=== PATIENT | female | born 1935 | race Caucasian/White ===

== ENCOUNTER 2021-12-02 14:49 | Observation (INO) | payer MEDICARE ==
[2021-12-02 17:44] LABS: Basophils % (A) 0 %; Eosinophils # (A) 0.1 k/uL (0-0.7); Eosinophils % (A) 1 %; HCT 40.8 % (34.0-46.0); HGB 13.6 gm/dL (11.4-16.0); Lymphocytes # (A) 1.5 k/uL (1.0-4.8); Lymphocytes % (A) 18 %; MCH 31.1 pg (25.0-35.0); MCHC 33.4 g/dL (31.0-37.0); MCV 93.3 fL (80.0-100.0); Monocytes # (A) 0.3 k/uL (0-1.0); Monocytes % (A) 3 %; Neutrophils # (A) 6.3 k/uL (1.3-7.7); Neutrophils % (A) 75 %; Platelet Count 247 k/uL (150-450); RBC 4.38 m/uL (3.80-5.40); RDW 14.6 % (11.5-15.5); WBC 8.3 k/uL (3.8-10.6)
[2021-12-02 17:51] LABS: Albumin 3.5 g/dL (3.5-5.0); Calcium 9.1 mg/dL (8.4-10.2); Potassium 2.9 mmol/L (3.5-5.1); Total Bilirubin 0.8 mg/dL (0.2-1.3); Total Protein 6.6 g/dL (6.3-8.2)
[2021-12-02] MEDS ORDERED: VANCOMYCIN IV PER PHARMACY 1 EACH MISC MISCELLANE PRN (19:16)
--- NOTE | 2021-12-02 19:22 | ED ---
Extremity Problem HPI - General Chief complaint: Extremity Problem,Nontraumatic Stated complaint: Leg pain Time Seen by Provider: 12/02/21 19:09 Source: patient, EMS, RN notes reviewed Mode of arrival: EMS Limitations: no limitations - History of Present Illness Initial comments: This is a pleasant 86-year-old female who presents to emergency department complaining of bilateral lower leg cellulitis which is not improving. Patient states she's been antibiotics which she just finished. Patient states the left leg is worse than the right. She states she has had problems with recurrent skin redness and cellulitis going on for quite some time, Patient also has developed large ulcerations over quite some time. Patient telling me she's been treated multiple times for this. Patient does have a history of diabetes. No insulin. .Patient does not recall what antibiotic she spine. She states she took the entire course of antibiotics. Has been no improvement, in fact cellulitis is getting worse. Patient unsure whether she's had a history of MRSA or not. No headache, no fever or chills, no changes in vision or hearing, no sore throat or difficulty with speech, no neck pain, no chest pain or shortness of breath, no abdominal pain, no nausea or vomiting, no changes in urination or bowel movements, no numbness or tingling, no skin rashes or lesions. - Related Data Allergies Allergy/AdvReac Type Severity Reaction Status Date / Time No Known Allergies Allergy Verified 12/02/21 16:02 Review of Systems ROS Statement: Those systems with pertinent positive or pertinent negative responses have been documented in the HPI. ROS Other: All systems not noted in ROS Statement are negative. Past Medical History Past Medical History: Diabetes Mellitus History of Any Multi-Drug Resistant Organisms: None Reported Past Surgical History: No Surgical Hx Reported Past Psychological History: No Psychological Hx Reported Smoking Status: Never smoker Past Alcohol Use History: None Reported Past Drug Use History: None Reported General Exam - General Exam Comments Initial Comments: Deconditioned appearing 86-year-old female in no acute distress. Patient does not appear to be ill or toxic. Patient has obvious cellulitis to the left lower leg. To a lesser extent has some erythema to the right lower leg as well. This seems to spare the foot. Distal sensation intact. Pulses are intact. Limitations: no limitations General appearance: alert, in no apparent distress Head exam: Present: atraumatic, normocephalic, normal inspection Eye exam: Present: normal appearance, PERRL, EOMI. Absent: scleral icterus, conjunctival injection, periorbital swelling ENT exam: Present: normal exam, mucous membranes moist Neck exam: Present: normal inspection, full ROM. Absent: tenderness, mening ismus, lymphadenopathy Respiratory exam: Present: normal lung sounds bilaterally, other (No respiratory distress, no adventitious lung sounds). Absent: respiratory distress, wheezes, rales, rhonchi, stridor, chest wall tenderness, accessory muscle use, decreased breath sounds, prolonged expiratory Cardiovascular Exam: Present: regular rate, normal rhythm, normal heart sounds. Absent: systolic murmur, diastolic murmur, rubs, gallop, clicks GI/Abdominal exam: Present: soft, normal bowel sounds. Absent: distended, tende rness, guarding, rebound, rigid Extremities exam: Present: full ROM, normal capillary refill, pedal edema (Edema to both lower extremities. Patient does have erythema which is greater on the left lower extremities. Patient does have break in skin integrity with what appears to be serous fluid.), other (Large ulcerations measuring 3-4 cm in diameter, left side does show some evidence of mucopurulent drainage.). Absent: normal inspection, tenderness, joint swelling, calf tenderness Back exam: Present: normal inspection Neurological exam: Present: alert, oriented X3, CN II-XII intact Psychiatric exam: Present: normal affect, normal mood Skin exam: Present: warm, dry, intact, normal color. Absent: rash Course Vital Signs 12/02/21 15:58 Temperature 98.6 F Pulse Rate 77 Respiratory 18 Rate Blood Pressure 125/69 O2 Sat by Pulse 96 Oximetry Medical Decision Making - Medical Decision Making She presents with bilateral lower extremities cellulitis, outpatient treatment failure after an entire round of antibiotics. White blood cell count in triage was normal. The patient's vital signs are stable, patient afebrile. Patient will require intravenous antibiotics and admission. - Lab Data Result diagrams: 12/02/21 17:26 12/02/21 17:26 Lab Results 12/02/21 12/02/21 Range/Units 17:26 17:26 WBC 8.3 (3.8-10.6) k/uL RBC 4.38 (3.80-5.40) m/uL Hgb 13.6 (11.4-16.0) gm/dL Hct 40.8 (34.0-46.0) % MCV 93.3 (80.0-100.0) fL MCH 31.1 (25.0-35.0) pg MCHC 33.4 (31.0-37.0) g/dL RDW 14.6 (11.5-15.5) % Plt Count 247 (150-450) k/uL MPV 8.0 Neutrophils % 75 % Lymphocytes % 18 % Monocytes % 3 % Eosinophils % 1 % Basophils % 0 % Neutrophils # 6.3 (1.3-7.7) k/uL Lymphocytes # 1.5 (1.0-4.8) k/uL Monocytes # 0.3 (0-1.0) k/uL Eosinophils # 0.1 (0-0.7) k/uL Basophils # 0.0 (0-0.2) k/uL Sodium 139 (137-145) mmol/L Potassium 2.9 L (3.5-5.1) mmol/L Chloride 103 (98-107) mmol/L Carbon Dioxide 29 (22-30) mmol/L Anion Gap 7 mmol/L BUN 27 H (7-17) mg/dL Creatinine 0.72 (0.52-1.04) mg/dL Est GFR (CKD-EPI)AfAm 89 (>60 ml/min/1.73 sqM) Est GFR (CKD-EPI)NonAf 77 (>60 ml/min/1.73 sqM) Glucose 126 H (74-99) mg/dL Calcium 9.1 (8.4-10.2) mg/dL Total Bilirubin 0.8 (0.2-1.3) mg/dL AST 18 (14-36) U/L ALT 15 (4-34) U/L Alkaline Phosphatase 140 H (38-126) U/L Total Protein 6.6 (6.3-8.2) g/dL Albumin 3.5 (3.5-5.0) g/dL Disposition Clinical Impression: Bilateral cellulitis of lower leg, Cellulitis, Bilateral leg ulcer, Hypokalemia Disposition: ADMITTED IP TO THIS [facility] Condition: Fair Referrals: Nonstaff,Physician [REFERRING] - 1-2 days Decision to Admit Reason: Admit from EC Decision Time: 20:26
[2021-12-02] MEDS ORDERED: VANCOMYCIN 1,250 MG in SODIUM CHLORIDE 0.9% 250 ML IVPB ONE (20:00)
[2021-12-02] MEDS ORDERED: NALOXONE 0.4 MG/ML 1 ML VIAL IV PRN (21:04)
[2021-12-02] MEDS ORDERED: Potassium Replacement Protocol 1 EACH MISC MISCELLANE PRN (21:08)
[2021-12-02] MEDS ORDERED: ONDANSETRON 4 MG/2 ML VIAL IVP STA (22:10)
[2021-12-02] MEDS ORDERED: MORPHINE SULFATE 4 MG/ML SYRINGE IV STA (22:10)
[2021-12-02] MEDS ORDERED: ONDANSETRON 4 MG/2 ML VIAL IVP PRN (22:11)
[2021-12-02] MEDS: HEPARIN SODIUM,PORCINE/PF 5,000 UNIT/0.5 ML SYRINGE SQ SCH (22:29)
[2021-12-02] MEDS: POTASSIUM CHLORIDE ER 20 MEQ TAB.ER PO SCH ×2 (22:30→23:17)
--- NOTE | 2021-12-02 22:30 | XR ---
EXAMINATION TYPE: XR tibia fibula bilateral DATE OF EXAM: 12/02/2021 9:15 PM INDICATION: Patient age:Female; 86 years old; Reason for study: Cellulitis; COMPARISON: None TECHNIQUE: The bilateral tibia/fibula was examined in AP and lateral projections. FINDINGS: No evidence of any acute osseous pathology or joint dislocation. There is soft tissue swell ing throughout the lower extremities. There is severe atherosclerosis of the arterial vasculature. So ft tissue wound is seen on the lateral aspect of the bilateral lower legs. There is moderate joint sp jeni narrowing of the knees with sclerosis and osteophyte formation. No evidence osseous erosion to navarro ggest osteitis. No radiopaque foreign bodies. IMPRESSION: 1. No evidence of acute fracture. 2. Soft tissue swelling throughout the extremities with bilateral wound on the lateral legs. 3. 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
[2021-12-02] MEDS: SODIUM CHLORIDE 0.9% 1,000 ML IV SCH (22:36)
[2021-12-03 00:06] LABS: Glucose,Whole Blood 202 mg/dL (75-99)
[2021-12-03] MEDS: POTASSIUM CHLORIDE ER 20 MEQ TAB.ER PO SCH (00:38)
[2021-12-03] MEDS: ACETAMINOPHEN TAB 325 MG TAB PO PRN (02:29)
[2021-12-03 04:14] LABS: Basophils # (A) 0.1 k/uL (0-0.2); Basophils % (A) 1 %; Eosinophils # (A) 0.1 k/uL (0-0.7); Eosinophils % (A) 2 %; HCT 38.2 % (34.0-46.0); HGB 12.1 gm/dL (11.4-16.0); Lymphocytes # (A) 1.5 k/uL (1.0-4.8); Lymphocytes % (A) 18 %; MCH 30.2 pg (25.0-35.0); MCHC 31.6 g/dL (31.0-37.0); MCV 95.5 fL (80.0-100.0); Mean Platelet Volume 8.5; Monocytes # (A) 0.5 k/uL (0-1.0); Monocytes % (A) 5 %; Neutrophils # (A) 6.3 k/uL (1.3-7.7); Neutrophils % (A) 73 %; Platelet Count 224 k/uL (150-450); WBC 8.6 k/uL (3.8-10.6)
[2021-12-03 04:37] LABS: Calcium 8.5 mg/dL (8.4-10.2); Magnesium 1.6 mg/dL (1.6-2.3); Potassium 3.8 mmol/L (3.5-5.1); Total Bilirubin 0.7 mg/dL (0.2-1.3); Total Protein 5.8 g/dL (6.3-8.2)
[2021-12-03] MEDS: MORPHINE SULFATE 4 MG/ML SYRINGE IVP PRN ×2 (05:42→17:01)
[2021-12-03 07:20] LABS: Glucose,Whole Blood 98 mg/dL (75-99)
[2021-12-03] MEDS: INSULIN ASPART (NovoLOG) 100 UNIT/ML VIAL SQ SCH ×4 (08:01→21:06)
[2021-12-03] MEDS: PANTOPRAZOLE 40 MG TABLET PO SCH (09:23)
[2021-12-03] MEDS: HEPARIN SODIUM,PORCINE/PF 5,000 UNIT/0.5 ML SYRINGE SQ SCH ×2 (09:23→20:21)
[2021-12-03 11:41] LABS: Glucose,Whole Blood 174 mg/dL (75-99)
[2021-12-03 16:26] LABS: Glucose,Whole Blood 193 mg/dL (75-99)
[2021-12-03] MEDS: COLLAGENASE 250 UNIT/GM OINTMENT 30 GM TUBE TOPICAL SCH (16:59)
[2021-12-03] MEDS: SODIUM CHLORIDE 0.9% 1,000 ML IV SCH (16:59)
[2021-12-03] MEDS ORDERED: VANCOMYCIN 1,250 MG in SODIUM CHLORIDE 0.9% 250 ML IVPB SCH (20:00)
[2021-12-03] MEDS: busPIRone HCl 5 MG TAB PO SCH (20:21)
[2021-12-03 21:02] LABS: Glucose,Whole Blood 98 mg/dL (75-99)
--- NOTE | 2021-12-03 21:42 | P.CONS ---
History of Present Illness - Reason for Consult Consult date: 12/03/21 Bilateral leg wound and cellulitis - Chief Complaint Bilateral leg wound and pain x weeks - History of Present Illness Patient is 86-year-old Female presenting to the ER for evaluation of bilateral lower extremity wound left greater than right which apparently has been going on for more than a month patient mention it started with a blister that has ruptured leading to this ulceration formation patient has been treated with multiple local treatment and recently completed course of antibiotic however the patient did not have any improvement as the patient presented to the hospital patient complaining of pain to bilateral lower extremity wound area to be more of a sharp almost 10 out of 10 by the time she presented to hospital with associated swelling redness but no foul-smelling drainage patient on arrival to the ER was afebrile and no fever have been recorded subsequently patient did h ave normal white count kidney function was normal patient did have x-ray of the tibia and fibula show soft tissue swelling with bilateral wounds to the leg no bony abnormality blood cultures were obtained which are currently pending patient has been started on vancomycin and admitted to hospital infectious disease was consulted for further management of antibiotic therapy Review of Systems Positive point has been mentioned in the HPI rest of the systems are negative Past Medical History Past Medical History: Diabetes Mellitus History of Any Multi-Drug Resistant Organisms: None Reported Past Surgical History: No Surgical Hx Reported Smoking Status: Never smoker Medications and Allergies Home Medications Medication Instructions Recorded Confirmed Type Furosemide [Lasix] 40 mg PO DAILY 12/02/21 12/02/21 History Metoprolol Tartrate [Lopressor] 12.5 mg PO BID 12/02/21 12/02/21 History Potassium Chloride ER [K-Dur 20] 20 meq PO DAILY 12/02/21 12/02/21 History busPIRone HCl [Buspar] 5 mg PO BID 12/02/21 12/02/21 History metOLazone [Zaroxolyn] 2.5 mg PO DAILY 12/02/21 12/02/21 History Cefuroxime Axetil [Ceftin] 500 mg PO BID 10 Days #20 tab 12/06/21 Rx Allergies Allergy/AdvReac Type Severity Reaction Status Date / Time No Known Allergies Allergy Verified 12/02/21 21:39 Physical Exam Vitals: Vital Signs Temp Pulse Pulse Resp BP BP Pulse Ox 12/03/21 14:00 98.1 F 84 18 108/56 98 05/21/22 08:00 98.0 F 74 18 106/58 95 12/03/21 01:49 97.8 F 72 16 106/66 93 L 12/03/21 00:34 98.1 F 77 16 133/73 96 12/02/21 15:58 98.6 F 77 18 125/69 96 Intake and Output 12/03/21 12/03/21 12/03/21 06:59 14:59 22:59 Intake Total 240 Balance 240 Intake: Oral 240 Other: # Voids 1 Weight 72.575 kg GENERAL DESCRIPTION: Elderly female lying in bed, no distress. No tachypnea or accessory muscle of respiration use. HEENT: Shows Pallor , no scleral icterus. Oral mucous membrane is dry. No pharyngeal erythema or thrush NECK: Trachea central, no thyromegaly. LUNGS: Unlabored breathing. Clear to auscultation anteriorly. No wheeze or crackle. HEART: S1, S2, regular rate and rhythm. No loud murmur ABDOMEN: Soft, no tenderness , guarding or rigidity, no organomegaly EXTREMITIES: Lower extremity wound with soft tissue surrounding swelling and minimal redness especially left leg SKIN: No rash, no masses palpable. NEUROLOGICAL: The patient is awake, alert, oriented x3, mood and affect normal. Results CBC & Chem 7: 12/06/21 06:41 12/06/21 06:41 Labs: Abnormal Lab Results - Last 24 Hours (Table) 12/02/21 12/02/21 12/02/21 Range/Units 17:26 17:26 22:41 ESR 35 H (0-20) mm/hr Potassium 2.9 L (3.5-5.1) mmol/L BUN 27 H (7-17) mg/dL Glucose 126 H (74-99) mg/dL POC Glucose (mg/dL) (75-99) mg/dL Alkaline Phosphatase 140 H (38-126) U/L C-Reactive Protein 2.1 H (<1.0) mg/dL Total Protein (6.3-8.2) g/dL Albumin (3.5-5.0) g/dL 12/03/21 12/03/21 12/03/21 Range/Units 00:04 03:49 11:39 ESR (0-20) mm/hr Potassium (3.5-5.1) mmol/L BUN 27 H (7-17) mg/dL Glucose 140 H (74-99) mg/dL POC Glucose (mg/dL) 202 H 174 H (75-99) mg/dL Alkaline Phosphatase (38-126) U/L C-Reactive Protein (<1.0) mg/dL Total Protein 5.8 L (6.3-8.2) g/dL Albumin 3.0 L (3.5-5.0) g/dL Microbiology - Last 24 Hours (Table) 12/02/21 23:40 Anaerobic Culture - Preliminary Leg - Left 12/02/21 22:31 Gram Stain - Preliminary Leg - Left Wound Culture - Preliminary Assessment and Plan (1) Bilateral cellulitis of lower leg Status: Acute Code(s): L03.116 - CELLULITIS OF LEFT LOWER LIMB; L03.115 - CELLULITIS OF RIGHT LOWER LIMB SNOMED Code(s): 588610221 Plan: 1patient with bilateral lower extremity wound left greater than right with some slough tissue and surrounding cellulitis failing outpatient oral antibiotic therapy. 2local wound culture to guide further antibiotic therapy. 3local wound care with Santyl followed by moist dressing to change daily. 4vancomycin pharmacy to dose target trough of 15 while watching kidney func tion and vancomycin trough closely. We will follow on clinical condition and cultures to further adjust medication if needed Thank you for this consultation will follow this patient along with you Time with Patient: Greater than 30
--- NOTE | 2021-12-03 22:10 | P.HPIM ---
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 Patient just finished antibiotic course and has been having nonhealing large ulcers and started having redness and swelling getting worse which made her to come to ER. Patient has been following due to this also for the past 2 to 3 months. Denies any history of MRSA, patient not sure. No fever no chills. No chest pain or shortness of breath. No nausea vomiting abdominal pain or diarrhea. No headache or dizziness or lightheadedness. X-ray of the tibia and fibula showed no evidence of acute fracture. Soft tissue swelling throughout the extremities with bilateral wound on the lateral legs. 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 Laboratory data showed WBC 8.6 hemoglobin 12.1 and platelets 224 Sodium 138 potassium 3.8 chloride 105 bicarb is 29 BUN 27 creatinine 0.73 and blood sugar is 140 Calcium 8.5 phosphorus 3.0 albumin 3.0 and blood sugar is 98 this morning. Review of Systems Constitutional: Patient denies any fever or chills . No generalized weakness or weight loss. Abdomen: Patient denied nausea vomiting and diarrhea and abdominal pain. Cardiovascular: Patient denies any chest pain or short of breath no palpitations . Respiratory: patient denied any cough or sputum production. No shortness of breath Neurologic: Patient denied any numbness or tingling headache. Musculoskeletal: Patient denies any complaints of joint swelling or deformity.Bilateral leg wounds and redness. Skin: Negative Psychiatric: Negative Endocrine: No heat or cold intolerance. No recent weight gain. Genitourinary: No dysuria or hematuria. All other 14 point ROS negative except the above Past Medical History Past Medical History: Diabetes Mellitus History of Any Multi-Drug Resistant Organisms: None Reported Past Surgical History: No Surgical Hx Reported Smoking Status: Never smoker Medications and Allergies Home Medications Medication Instructions Recorded Confirmed Type Furosemide [Lasix] 40 mg PO DAILY 12/02/21 12/02/21 History Metoprolol Tartrate [Lopressor] 12.5 mg PO BID 12/02/21 12/02/21 History Potassium Chloride ER [K-Dur 20] 20 meq PO DAILY 12/02/21 12/02/21 History busPIRone HCl [Buspar] 5 mg PO BID 12/02/21 12/02/21 History glipiZIDE XL [Glucotrol Xl] 10 mg PO DAILY 12/02/21 12/02/21 History metOLazone [Zaroxolyn] 2.5 mg PO DAILY 12/02/21 12/02/21 History Allergies Allergy/AdvReac Type Severity Reaction Status Date / Time No Known Allergies Allergy Verified 12/02/21 21:39 Physical Exam Vitals: Vital Signs Temp Pulse Pulse Resp BP BP Pulse Ox 12/03/21 08:00 98.0 F 74 18 106/58 95 12/03/21 01:49 97.8 F 72 16 106/66 93 L 12/03/21 00:34 98.1 F 77 16 133/73 96 12/02/21 15:58 98.6 F 77 18 125/69 96 Intake and Output 12/02/21 12/03/21 12/03/21 22:59 06:59 14:59 Intake Total 240 Balance 240 Intake: Oral 240 Other: # Voids 1 Weight 72.575 kg 72.575 kg PHYSICAL EXAMINATION: Patient is lying in the bed comfortably, no acute distress, awake alert and oriented.. HEENT: Normocephalic. Neck is supple. Pupils reactive. Nostrils clear. Oral cavity is moist. Neck reveals no JVD, carotid bruits, or thyromegaly. CHEST EXAMINATION: Trachea is central. Symmetrical expansion. Lung ruvalcaba clear to auscultation and percussion. CARDIAC: Normal S1, S2 with no gallops. No murmurs ABDOMEN: Soft. Bowel sounds normal. No organomegaly. No abdominal bruits. Extremities: Bilateral lower extremity swelling and redness and deep ulcers with purulent base on both legs left greater than right.. No clubbing or cyanosis Neurologically awake, alert, oriented x3 with well-coordinated movements. No focal deficits noted Skin: No rash or skin lesions except above. Psychiatric: Cooperative. Nonsuicidal Musculoskeletal: No joint swelling or deformity. Normal range of motion. Results CBC & Chem 7: 12/03/21 03:49 12/03/21 03:49 Labs: Abnormal Lab Results - Last 24 Hours (Table) 05/20/22 05/20/22 05/20/22 Range/Units 17:26 17:26 22:41 ESR 35 H (0-20) mm/hr Potassium 2.9 L (3.5-5.1) mmol/L BUN 27 H (7-17) mg/dL Glucose 126 H (74-99) mg/dL POC Glucose (mg/dL) (75-99) mg/dL Alkaline Phosphatase 140 H (38-126) U/L C-Reactive Protein 2.1 H (<1.0) mg/dL Total Protein (6.3-8.2) g/dL Albumin (3.5-5.0) g/dL 12/03/21 12/03/21 Range/Units 00:04 03:49 ESR (0-20) mm/hr Potassium (3.5-5.1) mmol/L BUN 27 H (7-17) mg/dL Glucose 140 H (74-99) mg/dL POC Glucose (mg/dL) 202 H (75-99) mg/dL Alkaline Phosphatase (38-126) U/L C-Reactive Protein (<1.0) mg/dL Total Protein 5.8 L (6.3-8.2) g/dL Albumin 3.0 L (3.5-5.0) g/dL Microbiology - Last 24 Hours (Table) 12/02/21 22:31 Wound Culture - Preliminary Leg - Left Thrombosis Risk Factor Assmnt - DVT/VTE Prophylaxis DVT/VTE Prophylaxis: Pharmacologic Prophylaxis ordered - Choose All That Apply Any of the Below Risk Factors Present?: Yes Each Factor Represents 1 point: Swollen legs (current) Other Risk Factors: Yes Each Risk Factor Represents 3 Points: Age 75 years or older Other congenital or acquired thrombophilia - If yes, enter type in comment: No Thrombosis Risk Factor Assessment Total Risk Factor Score: 4 Thrombosis Risk Factor Assessment Level: Moderate Risk Assessment and Plan Assessment: Bilateral nonhealing ulcers with purulent base and surrounding cellulitis left greater than right. Diabetes type 2 GI and DVT prophylaxis. Plan: Patient will be continued on antibiotics in the form of vancomycin. Gentle IV hydration and follow-up wound cultures. Vascular surgery and ID was consulted for evaluation. Continue with wound care and follow-up closely. Time with Patient: Greater than 30
[2021-12-04 02:35] LABS: Glucose,Whole Blood 146 mg/dL (75-99)
[2021-12-04] MEDS: MORPHINE SULFATE 4 MG/ML SYRINGE IVP PRN ×2 (04:49→20:43)
[2021-12-04 05:55] LABS: African American GFR (CKD) >90 (>60 ml/min/1.73 sqM); Anion Gap 3 mmol/L; Blood Urea Nitrogen 19 mg/dL (7-17); Calcium 8.2 mg/dL (8.4-10.2); Carbon Dioxide 27 mmol/L (22-30); Chloride 106 mmol/L (98-107); Glucose 156 mg/dL (74-99); Non-African American GFR(CKD) 84 (>60 ml/min/1.73 sqM); Potassium 3.9 mmol/L (3.5-5.1); Sodium 136 mmol/L (137-145)
[2021-12-04 06:59] LABS: Glucose,Whole Blood 135 mg/dL (75-99)
[2021-12-04] MEDS: INSULIN ASPART (NovoLOG) 100 UNIT/ML VIAL SQ SCH ×4 (07:07→20:43)
[2021-12-04] MEDS: PANTOPRAZOLE 40 MG TABLET PO SCH (08:50)
[2021-12-04] MEDS: HEPARIN SODIUM,PORCINE/PF 5,000 UNIT/0.5 ML SYRINGE SQ SCH ×2 (08:50→20:43)
[2021-12-04] MEDS: busPIRone HCl 5 MG TAB PO SCH ×2 (08:51→20:44)
[2021-12-04] MEDS: ACETAMINOPHEN TAB 325 MG TAB PO PRN ×3 (08:51→22:55)
[2021-12-04 09:46] LABS: Basophils # (A) 0.04 X 10*3/uL (0.00-0.10); Basophils % (A) 0.5 %; Eosinophils # (A) 0.08 X 10*3/uL (0.04-0.35); HCT 34.4 % (37.2-46.3); HGB 11.1 g/dL (12.0-15.0); Immature Grans, Automated 0.5 %; Lymphocytes # (A) 1.16 X 10*3/uL (0.90-5.00); Lymphocytes % (A) 13.9 %; MCH 31.2 pg (27.0-32.0); MCHC 32.3 g/dL (32.0-37.0); MCV 96.6 fL (80.0-97.0); Monocytes # (A) 0.58 X 10*3/uL (0.20-1.00); NRBC Per 100 WBC 0 /100 WBCS (0.0-0.0); Neutrophils # (A) 6.43 X 10*3/uL (1.80-7.70); Neutrophils % (A) 77.1 %; Platelet Count 194 X 10*3/uL (140-440); RBC 3.56 X 10*6/uL (4.10-5.20); RDW 14.9 % (11.5-14.5); WBC 8.33 X 10*3/uL (4.50-10.00)
[2021-12-04 11:35] LABS: Glucose,Whole Blood 155 mg/dL (75-99)
[2021-12-04] MEDS: CEFEPIME 2 GM in SODIUM CHLORIDE 0.9% 100 ML IVPB SCH ×2 (11:56→20:44)
[2021-12-04] MEDS: SODIUM CHLORIDE 0.9% 1,000 ML IV SCH (11:57)
[2021-12-04] MEDS ORDERED: VANCOMYCIN 1,250 MG in SODIUM CHLORIDE 0.9% 250 ML IVPB SCH (12:00)
[2021-12-04] MEDS: COLLAGENASE 250 UNIT/GM OINTMENT 30 GM TUBE TOPICAL SCH (14:13)
[2021-12-04 16:34] LABS: Glucose,Whole Blood 117 mg/dL (75-99)
--- NOTE | 2021-12-04 17:21 | P.PN ---
Subjective Progress Note Date: 12/04/21 Principal diagnosis: Bilateral lower extremity wound and cellulitis Patient is 86-year-old female presenting to the hospital with a nonhealing wound to bilateral lower extremity increasing pain and swelling and concern for secondary cellulitis failing outpatient therapy. On today's evaluation that is 12/04/2021, patient denies having any fever or any chills, the patient is breathing comfortably mention decrease in the pain to the lower extremity no nausea no vomiting no abdominal pain no diarrhea Objective - Vital Signs Vital signs: Vital Signs Temp 97.9 F 12/04/21 14:00 Pulse 89 12/04/21 14:00 Resp 17 12/04/21 14:00 BP 106/60 12/04/21 14:00 Pulse Ox 97 12/04/21 14:00 Intake & Output 12/03/21 12/04/21 12/04/21 18:59 06:59 18:59 Other: Voiding Method Toilet # Voids 3 5 # Bowel Movements 1 - Exam GENERAL DESCRIPTION: An elderly female lying in bed in no distress RESPIRATORY SYSTEM: Unlabored breathing , decreased breath sounds at bases HEART: S1 S2 regular rate and rhythm , ABDOMEN: Soft , no tenderness EXTREMITIES: Bilateral lower extremity wounds are currently dressed no drainage on the dressing left leg redness slightly decreased - Labs CBC & Chem 7: 12/04/21 04:18 12/04/21 04:18 Labs: Abnormal Lab Results - Last 24 Hours (Table) 12/03/21 12/04/21 12/04/21 Range/Units 16:24 02:32 04:18 RBC (4.10-5.20) X 10*6/uL Hgb (12.0-15.0) g/dL Hct (37.2-46.3) % RDW (11.5-14.5) % Sodium 136 L (137-145) mmol/L BUN 19 H (7-17) mg/dL Glucose 156 H (74-99) mg/dL POC Glucose (mg/dL) 193 H 146 H (75-99) mg/dL Calcium 8.2 L (8.4-10.2) mg/dL 12/04/21 12/04/21 12/04/21 Range/Units 04:18 06:57 11:34 RBC 3.56 L (4.10-5.20) X 10*6/uL Hgb 11.1 L (12.0-15.0) g/dL Hct 34.4 L (37.2-46.3) % RDW 14.9 H (11.5-14.5) % Sodium (137-145) mmol/L BUN (7-17) mg/dL Glucose (74-99) mg/dL POC Glucose (mg/dL) 135 H 155 H (75-99) mg/dL Calcium (8.4-10.2) mg/dL Microbiology - Last 24 Hours (Table) 12/02/21 22:22 Blood Culture - Preliminary Blood No Growth after 24 hours 12/02/21 22:00 Blood Culture - Preliminary Blood No Growth after 24 hours 12/03/21 16:28 Anaerobic Culture - Preliminary Leg - Left 12/03/21 16:28 Wound Culture - Preliminary Leg - Left 12/02/21 22:31 Gram Stain - Preliminary Leg - Left Wound Culture - Preliminary Gram Neg Bacilli 12/02/21 23:40 Anaerobic Culture - Preliminary Leg - Left Assessment and Plan (1) Bilateral cellulitis of lower leg Current Visit: Yes Status: Acute Code(s): L03.116 - CELLULITIS OF LEFT LOWER LIMB; L03.115 - CELLULITIS OF RIGHT LOWER LIMB SNOMED Code(s): 457726417 Plan: 1patient with bilateral lower extremity wound left greater than right with some slough tissue and surrounding cellulitis failing outpatient oral antibiotic therapy. 2local wound culture to guide further antibiotic therapy. 3local wound care with Santyl followed by moist dressing to change daily. 4local cultures are growing gram-negative bacilli, vancomycin discontinued start the patient cefepime 2 g every 12 hourly dose adjusted to kidney function Time with Patient: Less than 30
--- NOTE | 2021-12-04 17:35 | P.GSCN ---
History of Present Illness Consult date: 12/04/21 Reason for Consult: lower extremity wounds History of present illness: 86-year-old Female presented to the hospital with bilateral lower extremity wounds onset over 1 month ago and have been worsening. She states having multiple treatments without improvement and therefore went to the hospital to see if they could help with the pain and wounds. She states it started with a blister that has ruptured leading to this ulceration formation and progressed to swelling, redness but no foul-smelling drainage. She is currently being treated with antibiotics and Santyl to the wound beds. She states she does have swelling issues in her lower extremities and has been on water pills. She denies any fevers, chills, chest pain or shortness of breath. Review of Systems All systems: negative (what is mentioned in the HPI or PMH) Past Medical History Past Medical History: Diabetes Mellitus History of Any Multi-Drug Resistant Organisms: None Reported Past Surgical History: No Surgical Hx Reported Smoking Status: Never smoker Medications and Allergies Home Medications Medication Instructions Recorded Confirmed Type Furosemide [Lasix] 40 mg PO DAILY 12/02/21 12/02/21 History Metoprolol Tartrate [Lopressor] 12.5 mg PO BID 12/02/21 12/02/21 History Potassium Chloride ER [K-Dur 20] 20 meq PO DAILY 12/02/21 12/02/21 History busPIRone HCl [Buspar] 5 mg PO BID 12/02/21 12/02/21 History glipiZIDE XL [Glucotrol Xl] 10 mg PO DAILY 12/02/21 12/02/21 History metOLazone [Zaroxolyn] 2.5 mg PO DAILY 12/02/21 12/02/21 History Allergies Allergy/AdvReac Type Severity Reaction Status Date / Time No Known Allergies Allergy Verified 12/02/21 21:39 Surgical - Exam Vital Signs Temp Pulse Resp BP Pulse Ox 98.6 F 77 18 125/69 96 12/02/21 15:58 12/02/21 15:58 12/02/21 15:58 12/02/21 15:58 12/02/21 15:58 2+ pitting edema bilateral lower extremities. Palpable PT pulses bilaterally but diminished. Bilateral anterior lateral lower leg venous ulcerations with the left greater that the right. Approximate measurement is 4x4cm on the left with fibrinous tissue noted, no purulent drainage, some surrounding erythema. Right is slightl y smaller measuring 3x4cm with fibrinous tissue, no purulent drainage and mild surrounding erythema. Results - Labs 12/04/21 04:18 12/04/21 04:18 Abnormal Lab Results - Last 24 Hours (Table) 12/04/21 12/04/21 12/04/21 Range/Units 02:32 04:18 04:18 RBC 3.56 L (4.10-5.20) X 10*6/uL Hgb 11.1 L (12.0-15.0) g/dL Hct 34.4 L (37.2-46.3) % RDW 14.9 H (11.5-14.5) % Sodium 136 L (137-145) mmol/L BUN 19 H (7-17) mg/dL Glucose 156 H (74-99) mg/dL POC Glucose (mg/dL) 146 H (75-99) mg/dL Calcium 8.2 L (8.4-10.2) mg/dL 12/04/21 12/04/21 12/04/21 Range/Units 06:57 11:34 16:33 RBC (4.10-5.20) X 10*6/uL Hgb (12.0-15.0) g/dL Hct (37.2-46.3) % RDW (11.5-14.5) % Sodium (137-145) mmol/L BUN (7-17) mg/dL Glucose (74-99) mg/dL POC Glucose (mg/dL) 135 H 155 H 117 H (75-99) mg/dL Calcium (8.4-10.2) mg/dL Microbiology - Last 24 Hours (Table) 12/02/21 22:22 Blood Culture - Preliminary Blood No Growth after 24 hours 12/02/21 22:00 Blood Culture - Preliminary Blood No Growth after 24 hours 12/03/21 16:28 Anaerobic Culture - Preliminary Leg - Left 12/03/21 16:28 Wound Culture - Preliminary Leg - Left 12/02/21 22:31 Gram Stain - Preliminary Leg - Left Wound Culture - Preliminary Gram Neg Bacilli Diabetes panel 12/04/21 Range/Units 04:18 Sodium 136 L (137-145) mmol/L Potassium 3.9 (3.5-5.1) mmol/L Chloride 106 (98-107) mmol/L Carbon Dioxide 27 (22-30) mmol/L BUN 19 H (7-17) mg/dL Creatinine 0.59 (0.52-1.04) mg/dL Glucose 156 H (74-99) mg/dL Calcium 8.2 L (8.4-10.2) mg/dL Calcium panel 12/04/21 Range/Units 04:18 Calcium 8.2 L (8.4-10.2) mg/dL Pituitary panel 12/04/21 Range/Units 04:18 Sodium 136 L (137-145) mmol/L Potassium 3.9 (3.5-5.1) mmol/L Chloride 106 (98-107) mmol/L Carbon Dioxide 27 (22-30) mmol/L BUN 19 H (7-17) mg/dL Creatinine 0.59 (0.52-1.04) mg/dL Glucose 156 H (74-99) mg/dL Calcium 8.2 L (8.4-10.2) mg/dL Adrenal panel 12/04/21 Range/Units 04:18 Sodium 136 L (137-145) mmol/L Potassium 3.9 (3.5-5.1) mmol/L Chloride 106 (98-107) mmol/L Carbon Dioxide 27 (22-30) mmol/L BUN 19 H (7-17) mg/dL Creatinine 0.59 (0.52-1.04) mg/dL Glucose 156 H (74-99) mg/dL Calcium 8.2 L (8.4-10.2) mg/dL Assessment and Plan Assessment: 1. Bilateral lower leg venous ulcerations 2. Chronic venous insufficiency 3. Lower extremity cellulitis Plan: Continue local wound care with Santyl Patient would benefit from weekly debridements in the wound care center and continued wound care. Recommend Elevation and compression to the lower extremities- place jein wraps today. Follow up in the office for formal lower extremity ultrasound for reflux disease. Thank you for the consult.
[2021-12-04 20:27] LABS: Glucose,Whole Blood 173 mg/dL (75-99)
[2021-12-05 02:18] LABS: Glucose,Whole Blood 114 mg/dL (75-99)
[2021-12-05] MEDS: MORPHINE SULFATE 4 MG/ML SYRINGE IVP PRN ×2 (02:19→13:33)
[2021-12-05 06:56] LABS: Glucose,Whole Blood 133 mg/dL (75-99)
[2021-12-05 06:59] LABS: African American GFR (CKD) >90 (>60 ml/min/1.73 sqM); Non-African American GFR(CKD) 85 (>60 ml/min/1.73 sqM)
[2021-12-05] MEDS: busPIRone HCl 5 MG TAB PO SCH ×2 (08:20→20:47)
[2021-12-05] MEDS: HEPARIN SODIUM,PORCINE/PF 5,000 UNIT/0.5 ML SYRINGE SQ SCH ×2 (08:20→20:46)
[2021-12-05] MEDS: INSULIN ASPART (NovoLOG) 100 UNIT/ML VIAL SQ SCH ×4 (08:20→20:47)
[2021-12-05] MEDS: PANTOPRAZOLE 40 MG TABLET PO SCH (08:20)
[2021-12-05] MEDS: CEFEPIME 2 GM in SODIUM CHLORIDE 0.9% 100 ML IVPB SCH (08:21)
[2021-12-05] MEDS: COLLAGENASE 250 UNIT/GM OINTMENT 30 GM TUBE TOPICAL SCH (11:34)
--- NOTE | 2021-12-05 11:34 | P.PN ---
Subjective Progress Note Date: 12/05/21 Principal diagnosis: Lower extremity wounds 86-year-old female who is seen as a follow-up for bilateral lower extremity wounds who has been having outpatient follow-up. Today her legs are wrapped with Marck wrap's with elevation. Patient will follow up outpatient with vascular surgery. No acute changes through the night. Patient's been afebrile. Infectious disease is following for wound culture with growth of E. coli. Objective - Vital Signs Vital signs: Vital Signs Temp 98.4 F 12/05/21 08:00 Pulse 95 12/05/21 08:00 Resp 18 12/05/21 08:00 BP 132/71 12/05/21 08:00 Pulse Ox 93 L 12/05/21 08:00 FiO2 Intake & Output 12/04/21 12/05/21 12/05/21 18:59 06:59 18:59 Other: Voiding Method Toilet Toilet Toilet # Voids 5 2 - Exam General appearance: The patient is alert, oriented, appears in no acute distress. HET: Head is normocephalic and atraumatic. Pupils are equal and reactive. Neck: Supple without lymphadenopathy. Trachea midline. Extremities: Bilateral lower extremity edema, lower extremities with Marck wrap is intact. Neurological: No focal deficits. Strength and sensation are grossly intact. - Labs CBC & Chem 7: 12/04/21 04:18 12/05/21 05:57 Labs: Abnormal Lab Results - Last 24 Hours (Table) 12/04/21 12/04/21 12/04/21 Range/Units 11:34 16:33 20:25 POC Glucose (mg/dL) 155 H 117 H 173 H (75-99) mg/dL 12/05/21 12/05/21 Range/Units 02:17 06:54 POC Glucose (mg/dL) 114 H 133 H (75-99) mg/dL Microbiology - Last 24 Hours (Table) 12/03/21 16:28 Gram Stain - Preliminary Leg - Left Wound Culture - Preliminary Gram Neg Bacilli 12/02/21 22:22 Blood Culture - Preliminary Blood No Growth after 48 hours 12/02/21 22:00 Blood Culture - Preliminary Blood No Growth after 48 hours 12/02/21 22:31 Gram Stain - Final Leg - Left Wound Culture - Final Escherichia coli Assessment and Plan Assessment: 1. Bilateral lower leg venous ulcerations 2. Chronic venous insufficiency 3. Lower extremity cellulitis Plan: Continue local wound care with Santyl Patient would benefit from weekly debridements in the wound care center and continued wound care. Recommend Elevation and compression to the lower extremities- place marck wraps today. Follow up in the office for formal lower extremity ultrasound for reflux disease. Continue with recommendations from infectious disease on antibiotic therapy Thank you for the consult. We will sign off at this time. The impression and plan of care has been dictated as directed. Dr. Mckeon I performed a history and examination of this patient, discussed the same with the dictator. I agree with the dictator's note ,documented as a scribe. Any additional findings or plans will be noted.
[2021-12-05 11:50] LABS: Glucose,Whole Blood 148 mg/dL (75-99)
[2021-12-05] MEDS: ACETAMINOPHEN TAB 325 MG TAB PO PRN ×2 (12:05→20:53)
[2021-12-05] MEDS: METOPROLOL TARTRATE 12.5 MG TAB PO SCH ×2 (12:05→20:47)
[2021-12-05 16:38] LABS: Glucose,Whole Blood 128 mg/dL (75-99)
[2021-12-05] MEDS ORDERED: VANCOMYCIN TROUGH DUE 1 EACH MISC MISCELLANE ONE (19:00)
[2021-12-05 20:16] LABS: Glucose,Whole Blood 192 mg/dL (75-99)
--- NOTE | 2021-12-06 00:06 | P.PN ---
Subjective Progress Note Date: 12/04/21 Patient is a 86-year-old female with a known history of diabetes type 2, chronic bilateral lower extremity ulcers left greater than right presents to ER with complaints of bilateral lower extremity redness and swelling getting worse. Patient just finished antibiotic course and has been having nonhealing large ulcers and started having redness and swelling getting worse which made her to come to ER. Patient has been following due to this also for the past 2 to 3 months. Denies any history of MRSA, patient not sure. No fever no chills. No chest pain or shortness of breath. No nausea vomiting abdominal pain or diarrhea. No headache or dizziness or lightheadedness. X-ray of the tibia and fibula showed no evidence of acute fracture. Soft tissue swelling throughout the extremities with bilateral wound on the lateral legs. 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 Laboratory data showed WBC 8.6 hemoglobin 12.1 and platelets 224 Sodium 138 potassium 3.8 chloride 105 bicarb is 29 BUN 27 creatinine 0.73 and blood sugar is 140 Calcium 8.5 phosphorus 3.0 albumin 3.0 and blood sugar is 98 this morning. 12/04/2021 Patient is currently sitting in the chair comfortably. Patient states her leg pain is better today. Afebrile. Wound cultures are growing gram-negative bacilli. Patient denies any complaints of nausea vomiting abdominal pain or diarrhea. No fever no chills. Patient is being current on antibiotics in the form of cefazolin. ID is on board. Laboratory data showed WBC 8.3 hemoglobin 11.1 and platelets 194 Sodium 136 potassium 3.9 chloride 106 bicarb is 27 BUN 19 and creatinine 0.59 and calcium 8.2. Current medications reviewed. Objective - Vital Signs Vital signs: Vital Signs Temp 98.9 F 12/04/21 08:00 Pulse 99 12/04/21 08:00 Resp 18 12/04/21 08:00 BP 100/64 12/04/21 08:00 Pulse Ox 94 L 12/04/21 08:00 Intake & Output 12/03/21 12/04/21 12/04/21 18:59 06:59 18:59 Other: Voiding Method Toilet # Voids 3 5 # Bowel Movements 1 - Exam PHYSICAL EXAMINATION: Patient is lying in the bed comfortably, no acute distress, awake alert and oriented.. HEENT: Normocephalic. Neck is supple. Pupils reactive. Nostrils clear. Oral cavity is moist. Neck reveals no JVD, carotid bruits, or thyromegaly. CHEST EXAMINATION: Trachea is central. Symmetrical expansion. Lung ruvalcaba clear to auscultation and percussion. CARDIAC: Normal S1, S2 with no gallops. No murmurs ABDOMEN: Soft. Bowel sounds normal. No organomegaly. No abdominal bruits. Extremities: Bilateral lower extremity swelling and redness and deep ulcers with purulent base on both legs left greater than right.. No clubbing or cyanosis Neurologically awake, alert, oriented x3 with well-coordinated movements. No focal deficits noted Skin: No rash or skin lesions except above. Psychiatric: Cooperative. Nonsuicidal Musculoskeletal: No joint swelling or deformity. Normal range of motion. - Labs CBC & Chem 7: 12/04/21 04:18 12/05/21 05:57 Labs: Abnormal Lab Results - Last 24 Hours (Table) 12/03/21 12/03/21 12/04/21 Range/Units 11:39 16:24 02:32 RBC (4.10-5.20) X 10*6/uL Hgb (12.0-15.0) g/dL Hct (37.2-46.3) % RDW (11.5-14.5) % Sodium (137-145) mmol/L BUN (7-17) mg/dL Glucose (74-99) mg/dL POC Glucose (mg/dL) 174 H 193 H 146 H (75-99) mg/dL Calcium (8.4-10.2) mg/dL 12/04/21 12/04/21 12/04/21 Range/Units 04:18 04:18 06:57 RBC 3.56 L (4.10-5.20) X 10*6/uL Hgb 11.1 L (12.0-15.0) g/dL Hct 34.4 L (37.2-46.3) % RDW 14.9 H (11.5-14.5) % Sodium 136 L (137-145) mmol/L BUN 19 H (7-17) mg/dL Glucose 156 H (74-99) mg/dL POC Glucose (mg/dL) 135 H (75-99) mg/dL Calcium 8.2 L (8.4-10.2) mg/dL Microbiology - Last 24 Hours (Table) 12/02/21 22:22 Blood Culture - Preliminary Blood No Growth after 24 hours 12/02/21 22:00 Blood Culture - Preliminary Blood No Growth after 24 hours 12/03/21 16:28 Anaerobic Culture - Preliminary Leg - Left 12/03/21 16:28 Wound Culture - Preliminary Leg - Left 12/02/21 22:31 Gram Stain - Preliminary Leg - Left Wound Culture - Preliminary Gram Neg Bacilli 12/02/21 23:40 Anaerobic Culture - Preliminary Leg - Left Assessment and Plan Assessment: Bilateral nonhealing ulcers with purulent base and surrounding cellulitis left greater than right. Diabetes type 2 GI and DVT prophylaxis. Plan: Patient will be continued on antibiotics in the form of cefepime. . Follow-up culture report. Gentle IV hydration and follow-up wound cultures. Vascular surgery and ID on board. Continue with wound care and follow-up closely. Time with Patient: Greater than 30
--- NOTE | 2021-12-06 00:09 | P.PN ---
Subjective Progress Note Date: 12/05/21 Patient is a 86-year-old female with a known history of diabetes type 2, chronic bilateral lower extremity ulcers left greater than right presents to ER with complaints of bilateral lower extremity redness and swelling getting worse. Patient just finished antibiotic course and has been having nonhealing large ulcers and started having redness and swelling getting worse which made her to come to ER. Patient has been following due to this also for the past 2 to 3 months. Denies any history of MRSA, patient not sure. No fever no chills. No chest pain or shortness of breath. No nausea vomiting abdominal pain or diarrhea. No headache or dizziness or lightheadedness. X-ray of the tibia and fibula showed no evidence of acute fracture. Soft tissue swelling throughout the extremities with bilateral wound on the lateral legs. 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 Laboratory data showed WBC 8.6 hemoglobin 12.1 and platelets 224 Sodium 138 potassium 3.8 chloride 105 bicarb is 29 BUN 27 creatinine 0.73 and blood sugar is 140 Calcium 8.5 phosphorus 3.0 albumin 3.0 and blood sugar is 98 this morning. 12/04/2021 Patient is currently sitting in the chair comfortably. Patient states her leg pain is better today. Afebrile. Wound cultures are growing gram-negative bacilli. Patient denies any complaints of nausea vomiting abdominal pain or diarrhea. No fever no chills. Patient is being current on antibiotics in the form of cefazolin. ID is on board. Laboratory data showed WBC 8.3 hemoglobin 11.1 and platelets 194 Sodium 136 potassium 3.9 chloride 106 bicarb is 27 BUN 19 and creatinine 0.59 and calcium 8.2. 12/05/2021 Patient is currently resting in the bed. Leg pain is better. Patient states that she feels better today. No complaints of fever or chills. Wound cultures are growing E. coli and antibiotics were adjusted to ceftriaxone. ID is on board. Vascular surgery has seen the patient and recommended wound debridement and wound care. Follow-up in the office. Patient denies any complaints of nausea vomiting abdominal pain or diarrhea. No dysuria or hematuria. No other acute overnight issues. Current medications reviewed. Objective - Vital Signs Vital signs: Vital Signs Temp 98.6 F 12/05/21 19:09 Pulse 80 12/05/21 19:09 Resp 16 12/05/21 19:09 BP 110/72 12/05/21 19:09 Pulse Ox 97 12/05/21 19:09 FiO2 Intake & Output 12/05/21 12/05/21 12/06/21 06:59 18:59 06:59 Other: Voiding Method Toilet Toilet Toilet # Voids 2 3 - Exam PHYSICAL EXAMINATION: Patient is lying in the bed comfortably, no acute distress, awake alert and oriented.. HEENT: Normocephalic. Neck is supple. Pupils reactive. Nostrils clear. Oral cavity is moist. Neck reveals no JVD, carotid bruits, or thyromegaly. CHEST EXAMINATION: Trachea is central. Symmetrical expansion. Lung ruvalcaba clear to auscultation and percussion. CARDIAC: Normal S1, S2 with no gallops. No murmurs ABDOMEN: Soft. Bowel sounds normal. No organomegaly. No abdominal bruits. Extremities: Bilateral lower extremity swelling and redness and deep ulcers with purulent base on both legs left greater than right.. No clubbing or cyanosis Neurologically awake, alert, oriented x3 with well-coordinated movements. No focal deficits noted Skin: No rash or skin lesions except above. Psychiatric: Cooperative. Nonsuicidal Musculoskeletal: No joint swelling or deformity. Normal range of motion. - Labs CBC & Chem 7: 12/04/21 04:18 12/05/21 05:57 Labs: Abnormal Lab Results - Last 24 Hours (Table) 12/05/21 12/05/21 12/05/21 Range/Units 02:17 06:54 11:37 POC Glucose (mg/dL) 114 H 133 H 148 H (75-99) mg/dL 12/05/21 12/05/21 Range/Units 16:36 20:14 POC Glucose (mg/dL) 128 H 192 H (75-99) mg/dL Microbiology - Last 24 Hours (Table) 12/03/21 16:28 Gram Stain - Final Leg - Left Wound Culture - Final Escherichia coli 12/03/21 16:28 Anaerobic Culture - Preliminary Leg - Left 12/02/21 22:22 Blood Culture - Preliminary Blood No Growth after 48 hours 12/02/21 22:00 Blood Culture - Preliminary Blood No Growth after 48 hours 12/02/21 22:31 Gram Stain - Final Leg - Left Wound Culture - Final Escherichia coli Assessment and Plan Assessment: Bilateral nonhealing ulcers with purulent base and surrounding cellulitis left greater than right.Wound cultures growing E. coli. Chronic venous insufficiency. Diabetes type 2 GI and DVT prophylaxis. Plan: Patient will be continued on antibiotics in the form of cefepime-->ceftriaxone. . Follow-up culture report. IVF on hold due to worsening leg swelling. Vascular surgery and ID on board. Continue with wound care and follow-up closely. Time with Patient: Greater than 30
[2021-12-06 02:04] LABS: Glucose,Whole Blood 105 mg/dL (75-99)
[2021-12-06] MEDS: ACETAMINOPHEN TAB 325 MG TAB PO PRN ×2 (05:20→13:11)
[2021-12-06 07:05] LABS: Glucose,Whole Blood 123 mg/dL (75-99)
[2021-12-06] MEDS: INSULIN ASPART (NovoLOG) 100 UNIT/ML VIAL SQ SCH ×3 (07:07→17:13)
[2021-12-06] MEDS: HEPARIN SODIUM,PORCINE/PF 5,000 UNIT/0.5 ML SYRINGE SQ SCH (07:20)
[2021-12-06] MEDS: COLLAGENASE 250 UNIT/GM OINTMENT 30 GM TUBE TOPICAL SCH (07:21)
[2021-12-06] MEDS: METOPROLOL TARTRATE 12.5 MG TAB PO SCH (07:21)
[2021-12-06] MEDS: PANTOPRAZOLE 40 MG TABLET PO SCH (07:21)
[2021-12-06] MEDS: busPIRone HCl 5 MG TAB PO SCH (07:21)
--- NOTE | 2021-12-06 07:23 | P.PN ---
Subjective Progress Note Date: 12/05/21 Principal diagnosis: Bilateral lower extremity wound and cellulitis Patient is 86-year-old female presenting to the hospital with a nonhealing wound to bilateral lower extremity increasing pain and swelling and concern for secondary cellulitis failing outpatient therapy. On today's evaluation that is 12/05/2021, patient remains to be afebrile, the patient is breathing comfortably on room air, the patient pain to the lower extremity has decreased in intensity, no nausea no vomiting no abdominal pain no diarrhea Objective - Vital Signs Vital signs: Vital Signs Temp 98.4 F 12/05/21 08:00 Pulse 95 12/05/21 08:00 Resp 18 12/05/21 08:00 BP 132/71 12/05/21 08:00 Pulse Ox 93 L 12/05/21 08:00 FiO2 Intake & Output 12/04/21 12/05/21 12/05/21 18:59 06:59 18:59 Other: Voiding Method Toilet Toilet Toilet # Voids 5 2 - Exam GENERAL DESCRIPTION: An elderly female lying in bed in no distress RESPIRATORY SYSTEM: Unlabored breathing , decreased breath sounds at bases HEART: S1 S2 regular rate and rhythm , ABDOMEN: Soft , no tenderness EXTREMITIES: Bilateral lower extremity wounds are currently dressed no drainage on the dressing left leg redness slightly decreased - Labs CBC & Chem 7: 12/04/21 04:18 12/05/21 05:57 Labs: Abnormal Lab Results - Last 24 Hours (Table) 12/04/21 12/04/21 12/04/21 Range/Units 11:34 16:33 20:25 POC Glucose (mg/dL) 155 H 117 H 173 H (75-99) mg/dL 12/05/21 12/05/21 Range/Units 02:17 06:54 POC Glucose (mg/dL) 114 H 133 H (75-99) mg/dL Microbiology - Last 24 Hours (Table) 12/03/21 16:28 Gram Stain - Preliminary Leg - Left Wound Culture - Preliminary Gram Neg Bacilli 12/02/21 22:22 Blood Culture - Preliminary Blood No Growth after 48 hours 12/02/21 22:00 Blood Culture - Preliminary Blood No Growth after 48 hours 12/02/21 22:31 Gram Stain - Final Leg - Left Wound Culture - Final Escherichia coli Assessment and Plan (1) Bilateral cellulitis of lower leg Current Visit: Yes Status: Acute Code(s): L03.116 - CELLULITIS OF LEFT LOWER LIMB; L03.115 - CELLULITIS OF RIGHT LOWER LIMB SNOMED Code(s): 389077631 Plan: 1patient with bilateral lower extremity wound left greater than right with some slough tissue and surrounding cellulitis failing outpatient oral antibiotic therapy. 2local wound culture to guide further antibiotic therapy. 3local wound care with Santyl followed by moist dressing to change daily. 4local cultures finalized with E. coli antibiotics switched to Rocephin to continue for another 24-hour before transitioning to oral antibiotic on discharge Time with Patient: Less than 30
[2021-12-06 09:23] LABS: Basophils # (A) 0.05 X 10*3/uL (0.00-0.10); Basophils % (A) 0.8 %; Eosinophils # (A) 0.13 X 10*3/uL (0.04-0.35); HCT 36.9 % (37.2-46.3); HGB 11.4 g/dL (12.0-15.0); Immature Grans, Automated 0.3 %; Lymphocytes # (A) 1.01 X 10*3/uL (0.90-5.00); Lymphocytes % (A) 15.4 %; MCH 29.8 pg (27.0-32.0); MCHC 30.9 g/dL (32.0-37.0); MCV 96.6 fL (80.0-97.0); Monocytes # (A) 0.47 X 10*3/uL (0.20-1.00); Monocytes % (A) 7.2 %; NRBC Per 100 WBC 0 /100 WBCS (0.0-0.0); Neutrophils # (A) 4.86 X 10*3/uL (1.80-7.70); Neutrophils % (A) 74.3 %; Platelet Count 183 X 10*3/uL (140-440); RBC 3.82 X 10*6/uL (4.10-5.20); RDW 14.9 % (11.5-14.5); WBC 6.54 X 10*3/uL (4.50-10.00)
[2021-12-06 09:29] LABS: African American GFR (CKD) 102.3 (60.0-200.0); Anion Gap 9.1 mmol/L (10.00-18.00); Calcium 8.4 mg/dL (8.7-10.3); Carbon Dioxide 21.9 mmol/L (20.0-27.5); Non-African American GFR(CKD) 88.3 (60.0-200.0); Potassium 3.9 mmol/L (3.5-5.5)
[2021-12-06 11:25] LABS: Glucose,Whole Blood 160 mg/dL (75-99)
[2021-12-06 13:53] VITALS: RESP 17; TEMP 98.4
--- NOTE | 2021-12-06 15:43 | CDI ---
Documentation Clarification Form Date: 12/06/2021 03:29:45 PM From: Evelyn Garces RN CCDS Admit Date: 12/02/2021 08:13:00 PM Patient Name: Amy Rodriguez Visit Number: [id number] Discharge Date: ATTENTION: The Clinical Documentation Specialists (CDI) and [facility] Coding Staff appreciate your assistance in clarifying documentation. Please respond to the clarification below the line at the bottom and electronically sign. The CDI & [facility] Coding staff will review the response and follow-up if needed. Please note: Queries are made part of the Legal Health Record. If you have any questions, please contact the author of this message via ITS. Dr. Cameron Arriaga MD Cellulitis is documented 12/05, Internal Medicine progress note. Additional clarification regarding the type of cellulitis is requested. History/risk factors: 86-year-old female presents ED with chronic bilateral lower extremity ulcers left greater than right with redness and swelling. Medical History DM 2; Bilateral lower extremity ulcers and MRSA. 12/03, H&P. Clinical Indicators: ID Progress note, 12/05: Patient with bilateral lower extremity wound left greater than right with some slough tissue and surrounding cellulitis failing outpatient oral antibiotic therapy. Local cultures finalized with Ecoli antibiotics switched to Rocephin to continue for 24 hours before transitioning to oral antibiotic on discharge. 12/03, Wound culture: left leg Gram stain Escherichia coli 12/02 Blood glucose 126; 12/03 140; 12/03 98; 12/03 174 Treatment: 12/03 to current Novolog Standard Sliding Scale SQ ACHS MAGI. Please clarify the type of cellulitis, if known: [ ] Cellulitis due to diabetes [ ] Cellulitis due to venous ulcers [ ] Cellulitis due to diabetes and venous ulcers [ ] Other, please specify: [ ] Unable to determine (Template Last Revised: September 2020) Unable to determine MTDD
[2021-12-06 16:14] LABS: Glucose,Whole Blood 142 mg/dL (75-99)
[2021-12-06 17:42] VITALS: BP 124/76; PULSE 65
--- NOTE | 2021-12-07 00:38 | P.DS ---
Providers Date of admission: 12/02/21 20:13 Attending physician: Brenda Galvan Consults: 12/02/21 21:04 Consult Physician Urgent Consulting Provider: Ned Mckeon Consult Reason/Comments: Bilateral lower leg ulceration Do you want consulting provider notified?: Yes Consult Physician Urgent Consulting Provider: Sha Ramirez Consult Reason/Comments: Bilateral lower leg cellulitis secondary to chronic ulcerations Do you want consulting provider notified?: Yes Primary care physician: IZABELLA Oliveros Hospital Course: Diagnoses: Bilateral nonhealing ulcers with purulent base and surrounding cellulitis left greater than right.Wound cultures growing E. coli. Evaluated by ID and vascular surgery teams and cleared for discharge Chronic venous insufficiency. Diabetes type 2 Hospital course: Patient is a 86-year-old female with a known history of diabetes type 2, chronic bilateral lower extremity ulcers left greater than right presents to ER with complaints of bilateral lower extremity redness and swelling getting worse. Patient has been followed by both vascular surgery team and infectious disease team. She did with ceftriaxone, culture was growing E. coli. Patient showed interval improvement, vascular surgery team and infectious disease team. The patient for discharge, antibiotics per ID team, please refer to discharge instructions. Physical therapist recommended home health care. Glucose controlled without glipizide 10 mg at home which is held on hospitalization. Her sugar control needing only 1-2 units of insulin. Patient informed to check her sugars 4 times a day before each meal and at bedtime and follow-up with PCP in one week for results and adjustment of medication and she agrees. Also informed to come to Hospital glucose more than 400 and she verbalized understanding. Patient denies any other symptoms upon discharge. Problems and management plan were discussed with the patient and he verbalized understanding and acceptance Patient was found stable and can be discharged home however he needs follow-up as an outpatient. Patient was instructed to follow up with PCP Dr. Olvera within one week and patient agrees with appointment made for her on On 12/13/21. Patient also informed to follow up with vascular surgeon Dr. Ivy and she agrees and asked to make her appointment Physical exam Gen: patient is a AAOx3, no distress CVS: S1-S2, RRR, no murmur Lungs: B/L CTA, no wheezing Abdomen: soft, no distention, no tenderness, positive bowel sounds Extremity: no leg edema or induration. . Bilateral leg cellulitis improvement Time spent more than 35 minutes Patient Condition at Discharge: Fair Plan - Discharge Summary Discharge Rx Participant: No New Discharge Prescriptions: New Cefuroxime Axetil [Ceftin] 500 mg PO BID 10 Days #20 tab Continue busPIRone HCl [Buspar] 5 mg PO BID Furosemide [Lasix] 40 mg PO DAILY metOLazone [Zaroxolyn] 2.5 mg PO DAILY Potassium Chloride ER [K-Dur 20] 20 meq PO DAILY Metoprolol Tartrate [Lopressor] 12.5 mg PO BID Discontinued glipiZIDE XL [Glucotrol Xl] 10 mg PO DAILY Discharge Medication List Furosemide [Lasix] 40 mg PO DAILY 12/02/21 [History] Metoprolol Tartrate [Lopressor] 12.5 mg PO BID 12/02/21 [History] Potassium Chloride ER [K-Dur 20] 20 meq PO DAILY 12/02/21 [History] busPIRone HCl [Buspar] 5 mg PO BID 12/02/21 [History] metOLazone [Zaroxolyn] 2.5 mg PO DAILY 12/02/21 [History] Cefuroxime Axetil [Ceftin] 500 mg PO BID 10 Days #20 tab 12/06/21 [Rx] Follow up Appointment(s)/Referral(s): Satish Malcolm NPC [Primary Care Provider] - 12/13/21 3:00 pm Ned Mckeon DO [STAFF PHYSICIAN] - 12/27/21 2:45 pm [facility], [NON-STAFF] - As Needed Patient Instructions/Handouts: Cellulitis (GEN), Foot Care for People with Diabetes (DC), Diabetic Foot Ulcers (DC), Diabetes and Your Skin (DC) Activity/Diet/Wound Care/Special Instructions: Local wound care with Santyl followed by moist dressing to be changed daily, follow-up with Dr. Ramirez in the wound care center 1 week, call [phone] to make an appointment December 14 at 0930 am Low carbohydrate diet, 1600 kcal per day Activity is restricted till you see your doctor We recommend to check your glucose 4 times a day, before each meal and at bedtime, keep the results in a log book and bring it to your doctor on your appointment date If your glucose less than 70 or more than 400, then to call 911 on come to emergency room Discharge Disposition: HOME WITH HOME HEALTH SERVICES
--- NOTE | 2021-12-13 23:41 | P.PN ---
Subjective Progress Note Date: 12/06/21 Principal diagnosis: Bilateral lower extremity wound and cellulitis Patient is 86-year-old female presenting to the hospital with a nonhealing wound to bilateral lower extremity increasing pain and swelling and concern for secondary cellulitis failing outpatient therapy. On today's evaluation that is 12/06/2021, patient continues to be afebrile, the patient is breathing comfortably on room air, the patient pain to the lower extremity wound has decreased in intensity, the patient denies nausea no vomiting no abdominal pain no diarrhea Objective - Vital Signs Vital signs: Vital Signs Temp 98.5 F 12/06/21 07:20 Pulse 79 12/06/21 07:20 Resp 18 12/06/21 07:20 BP 113/68 12/06/21 07:20 Pulse Ox 94 L 12/06/21 07:20 FiO2 Intake & Output 12/05/21 12/06/21 12/06/21 18:59 06:59 18:59 Other: Voiding Method Toilet Toilet # Voids 3 2 - Exam GENERAL DESCRIPTION: An elderly female lying in bed in no distress RESPIRATORY SYSTEM: Unlabored breathing , decreased breath sounds at bases HEART: S1 S2 regular rate and rhythm , ABDOMEN: Soft , no tenderness EXTREMITIES: Bilateral lower extremity wounds are currently dressed no drainage on the dressing left leg redness slightly decreased - Labs CBC & Chem 7: 12/06/21 06:41 12/06/21 06:41 Labs: Abnormal Lab Results - Last 24 Hours (Table) 12/05/21 12/05/21 12/06/21 Range/Units 16:36 20:14 02:02 RBC (4.10-5.20) X 10*6/uL Hgb (12.0-15.0) g/dL Hct (37.2-46.3) % MCHC (32.0-37.0) g/dL RDW (11.5-14.5) % Anion Gap (10.00-18.00) mmol/L Creatinine (0.6-1.5) mg/dL BUN/Creatinine Ratio (12.00-20.00) Ratio Glucose (70-110) mg/dL POC Glucose (mg/dL) 128 H 192 H 105 H (75-99) mg/dL Calcium (8.7-10.3) mg/dL 12/06/21 12/06/21 12/06/21 Range/Units 06:41 06:41 07:02 RBC 3.82 L (4.10-5.20) X 10*6/uL Hgb 11.4 L (12.0-15.0) g/dL Hct 36.9 L (37.2-46.3) % MCHC 30.9 L (32.0-37.0) g/dL RDW 14.9 H (11.5-14.5) % Anion Gap 9.10 L (10.00-18.00) mmol/L Creatinine 0.5 L (0.6-1.5) mg/dL BUN/Creatinine Ratio 22.00 H (12.00-20.00) Ratio Glucose 138 H (70-110) mg/dL POC Glucose (mg/dL) 123 H (75-99) mg/dL Calcium 8.4 L (8.7-10.3) mg/dL 12/06/21 Range/Units 11:23 RBC (4.10-5.20) X 10*6/uL Hgb (12.0-15.0) g/dL Hct (37.2-46.3) % MCHC (32.0-37.0) g/dL RDW (11.5-14.5) % Anion Gap (10.00-18.00) mmol/L Creatinine (0.6-1.5) mg/dL BUN/Creatinine Ratio (12.00-20.00) Ratio Glucose (70-110) mg/dL POC Glucose (mg/dL) 160 H (75-99) mg/dL Calcium (8.7-10.3) mg/dL Microbiology - Last 24 Hours (Table) 12/02/21 22:22 Blood Culture - Preliminary Blood No Growth after 72 hours 12/02/21 22:00 Blood Culture - Preliminary Blood No Growth after 72 hours 12/03/21 16:28 Gram Stain - Final Leg - Left Wound Culture - Final Escherichia coli 12/03/21 16:28 Anaerobic Culture - Preliminary Leg - Left Assessment and Plan (1) Bilateral cellulitis of lower leg Status: Acute Code(s): L03.116 - CELLULITIS OF LEFT LOWER LIMB; L03.115 - CELLULITIS OF RIGHT LOWER LIMB SNOMED Code(s): 467252204 Plan: 1patient with bilateral lower extremity wound left greater than right with some slough tissue and surrounding cellulitis failing outpatient oral antibiotic therapy. 2local wound culture has been finalized with an E. coli that is sensitive to pathogen 3local wound care with Santyl followed by moist dressing to change daily. 4patient should've overall clinical improvement with Rocephin which will be switched over to oral Ceftin to finish course of therapy Time with Patient: Less than 30
== END 2021-12-06 21:08 | disposition home health service (06) ==
LOC: EC 14:49 → INTOOBSV 20:13 → 4SSUR 20:13 → UNDODISIN 12-06 21:08
PROVIDERS: ADMIT Hospitalist; ATTEND Hospitalist
DX: E11.622 Type 2 diabetes mellitus with other skin ulcer (principal); L97.919 Non-pressure chronic ulcer of unspecified part of right lower leg with unspecified severity; L03.116 Cellulitis of left lower limb; L03.115 Cellulitis of right lower limb; L97.929 Non-pressure chronic ulcer of unspecified part of left lower leg with unspecified severity; I87.2 Venous insufficiency (chronic) (peripheral); B96.20 Unspecified Escherichia coli [E. coli] as the cause of diseases classified elsewhere; E87.6 Hypokalemia; M17.0 Bilateral primary osteoarthritis of knee; H01.8 Other specified inflammations of eyelid; Z79.84 Long term (current) use of oral hypoglycemic drugs; Z79.899 Other long term (current) drug therapy; Z86.14 Personal history of Methicillin resistant Staphylococcus aureus infection; M79.89 Other specified soft tissue disorders
CPT/HCPCS: 96376 ×3; 96366 ×5; 96367; 96372 ×5; 96368; 96365; 96375; 99284; 36415; 97116; 97162; 97166; 80053 ×2; 80048 ×2; 85652; 82565; 83605; 83735; 84100; 85025 ×4; 86140; 87040; 87070 ×2; 87205 ×2; 87075 ×2; 87077 ×2; 87186 ×2; 73590; G0378 ×5; J3370 ×3; J2270 ×4; J2405; J0696 ×2; J0692 ×2; J1644 ×5